=== PATIENT | female | born 1940 | race Caucasian/White ===

== ENCOUNTER → 2021-02-28 | Outpatient (CLI) | payer SELFPAY | LOC: LAB 11:09 → LAB SHORT 11:09 | DX: N39.0 Urinary tract infection, site not specified (principal) | CPT/HCPCS: 87086 ==

== ENCOUNTER → 2022-06-17 | Outpatient (CLI) | payer MEDICARE, BC ==
[~2022-06-17] MED LIST: CEPH500 PO; Chlorthalidone25 MG; LEVSOD100 PO; LIOT5 PO; ONDA4ODT MM
[2022-06-17 14:05] LABS: C DIFFICILE DNA POSITIVE (Negative)
== END | disposition home or self-care (01) ==
LOC: LAB SHORT 08:20 → LAB 08:20
PROVIDERS: Student in an Organized Health Care Education/Training Program
DX: R50.9 Fever, unspecified (principal)
CPT/HCPCS: 87324; 87493

== ENCOUNTER → 2022-08-13 | Outpatient (CLI) | payer MEDICARE, BC ==
[2022-08-13 08:09] LABS: BASOPHILS ABSOLUTE AUTO 0.05 K/mm3 (0.00-0.23); BASOPHILS PERCENT AUTO 1 % (0-2); EOSINOPHILS ABSOLUTE AUTO 0.08 K/mm3 (0.00-0.68); EOSINOPHILS PERCENT AUTO 1 % (0-6); Hematocrit 42.3 % (33.0-51.0); Hemoglobin 14.8 g/dL (11.5-16.0); IMMATURE GRAN ABSOLUTE AUTO 0.01 K/mm3 (0.00-0.10); IMMATURE GRAN PERCENT AUTO 0 % (0-1); LYMPHOCYTES ABSOLUTE AUTO 1.88 K/mm3 (0.84-5.20); LYMPHOCYTES PERCENT AUTO 32 % (21-46); MONOCYTES ABSOLUTE AUTO 0.78 K/mm3 (0.16-1.47); MONOCYTES PERCENT AUTO 13 % (4-13); Mean Corpuscular HGB 28.3 pg (26.0-34.0); Mean Corpuscular Volume 81 fL (80-100); Mean Platelet Volume 10.2 fL (9.1-12.4); NEUTROPHILS ABSOLUTE AUTO 3.04 K/mm3 (1.96-9.15); NEUTROPHILS PERCENT AUTO 52 % (41-73); Platelet Count 236 K/mm3 (150-400); RDW Coefficient Variation 14.6 % (11.7-14.2); RDW Standard Deviation 43.3 fL (35.1-46.3); Red Blood Cell Count 5.23 M/mm3 (3.80-5.20); White Blood Cell Count 5.84 K/mm3 (4.00-11.30)
[2022-08-13 08:38] LABS: Albumin, Blood 4.1 g/dL (3.4-5.0); Bilirubin, Total 0.6 mg/dL (0.1-1.0); Bun/Creatinine Ratio 9.6 (12.0-20.0); Calcium, Blood 9.7 mg/dL (8.5-10.1); Creatinine, Blood 0.94 mg/dL (0.40-1.00); Potassium, Blood 3.8 mmol/L (3.5-5.5); Total Protein, Blood 8.1 g/dL (6.4-8.2)
== END | disposition home or self-care (01) ==
LOC: LAB SHORT 07:57 → LAB 07:57
PROVIDERS: Physician Assistant
DX: R82.79 Other abnormal findings on microbiological examination of urine (principal); N05.9 Unspecified nephritic syndrome with unspecified morphologic changes
CPT/HCPCS: 80053; 85025; 87086

== ENCOUNTER 2024-08-16 07:15 | Day surgery (SDC) | payer MEDICARE, BC ==
[~2024-08-16] VITALS: Ht 152.4 cm; Wt 69.6 kg
[2024-08-16] VITALS (9 sets, daily range): BP systolic 125–200; BP diastolic 64–112
[~2024-08-16 07:15] MED LIST changes: +AMLO5 PO; +ATOR40TA PO; +ELIQUIS5 M2 PO; +ESCI10 PO; +Estrace Vagin42.5 GM VAG; +METO25ER PO
[2024-08-16] MEDS ORDERED: NS 1,000 ML IV ONE ×2 (07:28→07:38)
[2024-08-16] MEDS ORDERED: Verapamil HCL 2.5 MG/ML 2ML Injection ONE (07:28)
[2024-08-16] MEDS ORDERED: NS 250 ML IV ONE (07:28)
[2024-08-16] MEDS ORDERED: Heparin Sodium 1000 Units/ML 10ML MDV ONE (07:28)
[2024-08-16] MEDS ORDERED: Midazolam HCl 1MG / ML 2ML Vial ONE (07:38)
[2024-08-16] MEDS ORDERED: FentaNYL Citrate 50 MCG/ML 2 ML Injection ONE (07:38)
[2024-08-16] MEDS ORDERED: Aspirin 325 MG Tab ONE (08:38)
[2024-08-16] MEDS ORDERED: Tirofiban HCL Monohydrate 3.75 MG/15 ML Vial ONE (08:53)
[2024-08-16] MEDS ORDERED: Clopidogrel Bisulfate 300 MG Cap ONE (08:58)
--- NOTE | 2024-08-16 09:23 | NUR ---
pt back to recovery from lab. pt a&o. radial site soft and non-tender per pt. no bleeding noted. pt sitting up in recliner.
--- NOTE | 2024-08-16 09:30 | NUR ---
script called to valorie
[2024-08-16] MEDS ORDERED: ASPI81CH PO (09:35)
[2024-08-16] MEDS ORDERED: CLOP75 PO (09:35)
--- NOTE | 2024-08-16 09:53 | NUR ---
R RADIAL SITE SOFT AND NON-TENDER PER PT. NO BLEEDING NOTED. PT GIVEN FOOD AND JUICE.
--- NOTE | 2024-08-16 10:14 | NUR ---
2cc air removed from tr band. site soft and non-tender per pt. no bleeding noted.
--- NOTE | 2024-08-16 10:33 | NUR ---
tr band fully deflated. site soft and non-tender per pt. no bleeding noted.
--- NOTE | 2024-08-16 10:57 | NUR ---
r radial site soft and non-tender per pt. no bleeding noted.
--- NOTE | 2024-08-16 11:16 | NUR ---
PT AMBULATED TO RESTROOM W/O ASSISTANCE.
--- NOTE | 2024-08-16 11:21 | NUR ---
PT BACK TO CHAIR FROM RESTROOM. REPEAT V/S. DRESSING APPLIED TO R WRIST.
--- NOTE | 2024-08-16 11:33 | NUR ---
PT WAS UNAWARE THAT SHE WOULD BE UNABLE TO DRIVE AFTER PROCEDURE. PT OFFERED A TAXI RIDE HOME. PT REFUSED. PTs WILL COME AND PICK PT UP.
--- NOTE | 2024-08-16 11:51 | NUR ---
PT GIVEN DC INSTRUCTIONS AND VERBALIZED UNDERSTADNING. IV OUT. PT CHNAGED. CLOTH DOT, DRESSING, ARM BOARD AND SLING APPLIED TO R RADIAL SITE. SITE SOFT AND NON-TENDER PER PT. NO BLEEDING NOTED. PT REFUSED WC. [facility] FOR TO PICK HER UP.
== END 2024-08-16 12:00 | disposition home or self-care (01) ==
LOC: MHTC 07:15
DX: I25.10 Atherosclerotic heart disease of native coronary artery without angina pectoris (principal); I25.82 Chronic total occlusion of coronary artery; I48.0 Paroxysmal atrial fibrillation; I10 Essential (primary) hypertension; E78.5 Hyperlipidemia, unspecified; E03.9 Hypothyroidism, unspecified; Z79.01 Long term (current) use of anticoagulants; Z79.890 Hormone replacement therapy; Z79.899 Other long term (current) drug therapy; Z88.6 Allergy status to analgesic agent; Z88.2 Allergy status to sulfonamides; Z88.0 Allergy status to penicillin; Z88.1 Allergy status to other antibiotic agents; Z88.7 Allergy status to serum and vaccine; Z88.8 Allergy status to other drugs, medicaments and biological substances
CPT/HCPCS: 76937; 85347; 93454; 99152; 99153; A9270; C1725; C1769; C1874; C1887; C1894; C9600; J1644; J2250; J3010; J3246; J7030; J7050; Q9967

== ENCOUNTER 2024-09-21 18:10 | Emergency (ER) | payer MEDICARE, BC ==
[~2024-09-21] VITALS: Ht 152.4 cm; Wt 64.9 kg
[~2024-09-21 18:10] MED LIST changes: +ASPI81CH PO; +CLOP75 PO
[2024-09-21] MEDS ORDERED: Metoprolol Tartrate 1 MG/ML 5 ML VIAL IV ONE ×2 (18:30→20:10)
[2024-09-21 18:40] LABS: BASOPHILS ABSOLUTE AUTO 0.05 K/mm3 (0.00-0.23); BASOPHILS PERCENT AUTO 1 % (0-2); EOSINOPHILS PERCENT AUTO 3 % (0-6); Hematocrit 44.2 % (33.0-51.0); Hemoglobin 15.3 g/dL (11.5-16.0); IMMATURE GRAN ABSOLUTE AUTO 0.03 K/mm3 (0.00-0.10); IMMATURE GRAN PERCENT AUTO 0 % (0-1); LYMPHOCYTES ABSOLUTE AUTO 2.74 K/mm3 (0.84-5.20); LYMPHOCYTES PERCENT AUTO 34 % (21-46); MONOCYTES ABSOLUTE AUTO 0.88 K/mm3 (0.16-1.47); MONOCYTES PERCENT AUTO 11 % (4-13); Mean Corpuscular HGB 28.1 pg (26.0-34.0); Mean Corpuscular HGB Conc 34.6 g/dL (31.5-36.5); Mean Corpuscular Volume 81 fL (80-100); Mean Platelet Volume 9.9 fL (9.1-12.4); NEUTROPHILS ABSOLUTE AUTO 4.26 K/mm3 (1.96-9.15); NEUTROPHILS PERCENT AUTO 52 % (41-73); Platelet Count 231 K/mm3 (150-400); RDW Coefficient Variation 14.1 % (11.7-14.2); RDW Standard Deviation 41.4 fL (35.1-46.3); Red Blood Cell Count 5.44 M/mm3 (3.80-5.20); White Blood Cell Count 8.16 K/mm3 (4.00-11.30)
[2024-09-21 19:05] LABS: Albumin/Globulin Ratio 0.9 (0.8-1.8); Bilirubin, Total 0.9 mg/dL (0.1-1.0); Bun/Creatinine Ratio 28.4 (12.0-20.0); Calcium, Blood 9.7 mg/dL (8.5-10.1); Creatinine, Blood 0.78 mg/dL (0.40-1.00); Globulin, Blood 4.4 g/dL (2.2-4.0); Potassium, Blood 3.2 mmol/L (3.5-5.5); Total Protein, Blood 8.4 g/dL (6.4-8.2)
[2024-09-21] MEDS ORDERED: Diltiazem HCl 5 MG / ML 5ML Vial IV ONE (20:55)
[2024-09-21 21:06] VITALS: BP 122/86
== END 2024-09-21 21:35 | disposition home or self-care (01) ==
LOC: ER 18:10
PROVIDERS: Emergency Medicine
DX: I48.91 Unspecified atrial fibrillation (principal); I10 Essential (primary) hypertension; Z88.1 Allergy status to other antibiotic agents; Z88.0 Allergy status to penicillin; Z88.5 Allergy status to narcotic agent; Z88.8 Allergy status to other drugs, medicaments and biological substances; Z88.7 Allergy status to serum and vaccine; Z91.018 Allergy to other foods; Z88.2 Allergy status to sulfonamides; Z79.82 Long term (current) use of aspirin; Z79.01 Long term (current) use of anticoagulants; Z79.899 Other long term (current) drug therapy
CPT/HCPCS: 71045; 80053; 84484; 85025; 93005; 93010; 96374; 96376; 99285-25